=== PATIENT | male | born 1995 | race Two or more races ===

== ENCOUNTER 2017-11-12 18:07 | Emergency (ER) | payer SELFPAY ==
[~2017-11-12] VITALS: Ht 182.9 cm; Wt 74.8 kg
[2017-11-12 18:07] VITALS: BP 152/78
[2017-11-12] MEDS ORDERED: LORAZEPAM 1 MG TABLET PO ONE (18:30)
[2017-11-12] MEDS ORDERED: LORAZEPAM 1 MG TABLET ONE (18:32)
--- NOTE | 2017-11-12 18:32 | NUR ---
PT AOX3 APPEARS COMFORTABLE. STATES "I WANT TO GO HOME" DR. DEWITT AWARE.
--- NOTE | 2017-11-12 18:54 | NUR ---
IV removed. Catheter intact and site benign. Pressure and 4x4 applied to site. No bleeding noted. Patient discharged to home in stable condition. Written and verbal after care instructions given. Patient verbalizes understanding of instruction. Ambulatory with a steady gait
== END 2017-11-12 18:55 | disposition home or self-care (01) ==
LOC: ER 18:11
DX: G40.909 Epilepsy, unspecified, not intractable, without status epilepticus (principal)
CPT/HCPCS: 99283; A4606; Z7610